=== PATIENT | male | born 1955 | race Asian ===

== ENCOUNTER → 2018-02-03 | Outpatient (CLI) | payer OTHER ==
[~2018-02-03] VITALS: Ht 157.5 cm; Wt 60.0 kg
[~2018-02-03] MED LIST: CHLORHEXIDINE GLUCONATE 2 % 1 PACK (2 CLOTHS) TOPICAL PRN; HYALURONIDASE/LIDOCAINE/BUPIVACAINE 5 ML SYR RIGHT EYE ONE; LACTATED RINGER'S 1000 ML IV PRN; LIDOCAINE HCL 1% PF 5 ML AMPULE ONE; LIDOCAINE HCL 2% PF 5 ML VIAL ONE; LISI10TA3 PO; METOPROLOL TARTRATE 25 MG TAB PO PRN; PILOCARPINE HCL 1% OPHT SOLN 15 ML BTL ONE; PILOCARPINE HCL 2% OPHT SOLN 15 ML BTL ONE; POVIDONE IODINE 5% (ANTISEPSIS KIT) 4 APPLICATIONS EACH NARE PRN; PROPARACAINE HCL 0.5% OPHT SOLN 15 ML BTL RIGHT EYE ONE; PROPOFOL 200 MG/20 ML AMP ONE; SODIUM CHLORID 0.9% 500 ML IV PRN; TOBRAMYCIN/DEXAMETHASONE OPTH OINT 3.5 GM TUBE ONE
[2018-02-03] MEDS: TROPICAMIDE 1% OPHT SOLN 15 ML BTL RIGHT EYE SCH ×4 (09:00→09:15)
[2018-02-03] MEDS: FLURBIPROFEN 0.03% OPHT SOLN 2.5 ML BTL RIGHT EYE SCH ×4 (09:00→09:15)
[2018-02-03] MEDS: CYCLOPENTOLATE HCL 1% OPHT SOLN 2 ML BTL RIGHT EYE SCH ×4 (09:00→09:15)
[2018-02-03] MEDS: PHENYLEPHRINE HCL 10% OPTH SOLN 5 ML BTL RIGHT EYE SCH ×4 (09:00→09:15)
[2018-02-03 09:20] VITALS: PULSE 83
[2018-02-03 09:28] VITALS: PULSE 74
[2018-02-03 11:30] VITALS: TEMP 98.3
[2018-02-03 11:55] VITALS: BP 135/86; PULSE 95; RESP 16; O2SAT 99
--- NOTE | 2018-02-03 12:11 | MP ---
cc: Rey Serna MD DATE OF OPERATION: 02/03/2018 [facility] NUMBER: [id number]. PREOPERATIVE DIAGNOSIS: Dislocated posterior chamber intraocular lens, right eye. POSTOPERATIVE DIAGNOSIS: Dislocated posterior chamber intraocular lens, right eye. PROCEDURE: Intraocular lens exchange, mechanical anterior vitrectomy, peripheral iridectomy, right eye. DESCRIPTION OF THE PROCEDURE: After informed consent was obtained, the patient was brought into the operative suite and placed on appropriate monitors by the anesthesia service. The patient had been given a previous retrobulbar injection of local anesthetic by the anesthesia service in the preop holding area. The patient's right eye was then prepped and draped in the usual sterile fashion. A wire lid speculum was placed. A fornix based conjunctival peritomy was made temporally exposing bare sclera for approximately 8 mm. Bipolar cautery was applied at the surgical limbus and extending back 2 or 3 mm posteriorly. A crescent blade was used to make a 6.5 mm partial thickness scleral incision 1 mm posterior to the temporal limbus. This was tunneled forward into clear cornea. Two 1 mm meka blade paracentesis incisions were made, at 6 and 12 o'clock. A small anterior chamber entry was made through the scleral tunnel also using the 1 mm meka blade. The intraocular lens was noted to be posteriorly displaced into the vitreous, hinged by only 3 to 4 clock hours of intact zonules superiorly. Dispersive viscoelastic (Occucoat was injected behind the IOL to float it into the anterior chamber). A Christopher hook was then used through the side port incision to keep the IOL in the anterior chamber as the entry site as the temporal scleral tunnel entry incision was enlarged with the meka blade to the full 6.5 mm. A 0.12 mm forceps was then introduced into the anterior chamber through this incision and the capsular bag and IOL complex was easily detached from its remaining zonular attachments and removed from the anterior chamber. A long anterior mechanical vitrectomy was then performed prior to ACIOL placement. At this time, I was made aware that there were no intraocular miotic agents (Miostat or Miochol) available for use. As the patient's pupil was dilated to approximately 10 mm (certainly not adequate miosis for ACIOL placement), 2% pilocarpine was dripped on the cornea in hopes of producing some miosis. Some time was spent doing some further mechanical anterior vitrectomy, but there was really no evidence that the pupil was getting smaller. Some of the pilocarpine was then injected directly into the anterior chamber, and the pupil over the next 15 minutes did respond by coming down to approximately 6 mm. The anterior chamber lens was then inserted and positioned and repositioned in the anterior chamber angle. The haptics were felt to be in good position with no evidence of any iris incarceration. Two 10-0 nylon sutures were then placed in the temporal scleral tunnel incision and further vitrectomy was then performed. The incision was swept with a cyclodialysis spatula internally, through the superior paracentesis incision. It was clear that there was still some vitreous in the anterior chamber, but it did not appear to be attached to the incision. Prior to placing one last interrupted 10-0 nylon suture in the scleral tunnel, a small peripheral iridectomy was made superotemporally. The conjunctiva was then closed over the incision and the anterior chamber was reformed with balanced saline. The incisions were watertight to a pressure of at least 40 home (the eye was very firm after AC reformation). Some balanced saline was gently burped through the paracentesis and the intraocular pressure was probably about 20 by digital palpation at the end of the case. All drapes were then removed. TobraDex ointment was placed in the eye, which was closed beneath a semi-pressure patch dressing. The patient tolerated this procedure well and left the operating room awake and alert. He is to followup in my office in the morning, but knows to contact me tonight if he has any problems at all. MD EMMA Luna/JORGE L , 11:48 AM , 12:11 PM
== END ==
LOC: PHSDC 07:37
PROVIDERS: ATTEND Optometrist Occupational Vision
DX: H27.131 Posterior dislocation of lens, right eye (principal); I10 Essential (primary) hypertension
CPT/HCPCS: 00142; 66930; 66986; 67010; J7040; V2630